=== PATIENT | female | born 1985 | race Caucasian/White ===

== ENCOUNTER → 2016-08-19 | Outpatient (CLI) | payer BC | END | disposition home or self-care (01) | LOC: C.PAPS 11:39 | PROVIDERS: ATTEND Obstetrics & Gynecology | DX: Z01.419 Encounter for gynecological examination (general) (routine) without abnormal findings (principal) ==

== ENCOUNTER 2017-04-05 15:44 | Emergency (ER) | payer BC, OTHER ==
[~2017-04-05] VITALS: Ht 167.6 cm; Wt 52.9 kg
[2017-04-05 15:46] VITALS: TEMP 36.9; Ht 167.6 cm; Wt 52.9 kg
--- NOTE | 2017-04-05 16:04 | EMERGENCY ROOM VISIT NOTE ---
History First contact with patient: 15:48 Chief Complaint: OTHER COMPLAINT Stated Complaint: BLOOD EXPOSURE, SPLASH TO FACE-WC History of Present Illness The patient is a 31 year old female who presents to the Emergency Room for evaluation of a body fluid exposure. 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 She states this was at the outpatient surgery center. She was wearing a facemask and glasses. She does report there was blood on the front of her glasses. She is unsure if any of the blood did splash into her eye. She rinsed her eyes with saline afterward. Source patient is known and has agreed to testing. Patient believes that her tetanus status and hepatitis B titers are up-to-date. She states that the source patient was a low risk patient. Review of Systems A complete 10 point review of systems was reviewed with the patient with pertinent positives and negatives as per history of present illness. All else were negative. Social History Smoking Status: Never Smoker Alcohol Use: none Marital Status: Housing Status: lives with significant other Occupation Status: employed Physical Exam Vital Signs Date Time Temp Pulse Resp B/P (MAP) Pulse Ox O2 Delivery O2 Flow Rate FiO2 04/05/17 15:46 36.9 77 16 136/88 100 Room Air Physical Exam VITALS: Vitals are noted on the nurse's note and reviewed by myself. Vital signs stable. GENERAL: This is a 31-year-old female, in no acute distress, nondiaphoretic, well-developed well-nourished. EYES: No conjunctival injection or periorbital edema. NEURO: Patient was alert and oriented to person place and time. Medical Decision & Procedures Laboratory Results Test 04/05/17 16:02 Medical Decision The patient was evaluated as above. Labs were drawn to evaluate patient's baseline HIV and hepatitis status. Explanation of HIV testing was discussed with the patient and she gave written consent for HIV baseline testing. Benefit /risk of starting postexposure prophylaxis were discussed with the patient and she chose not to start postexposure prophylaxis at this time. The patient will follow-up with her employee health provider for further instructions and treatment. She verbalized understanding of my assessment and treatment plan and was discharged home in good condition. Medication Reconcilliation Current Medication List: was personally reviewed by me Blood Pressure Screening Patient's blood pressure: Normal blood pressure Impression Primary Impression: Patient exposure to body fluids Departure Information Dispostion Home / Self-Care Condition GOOD Referrals Estephanie Bean PA-C (PCP) Patient Instructions My [facility] Remote Additional Instructions Follow-up with your Workmen's Compensation provider for testing results and further instructions.
[2017-04-05 16:16] VITALS: BP 127/76; PULSE 76; O2SAT 98
[2017-04-05 17:27] LABS: HEPATITIS B AB POS
== END 2017-04-05 16:16 | disposition home or self-care (01) ==
LOC: C.EDB 15:44 → C.EDD 16:16
DX: Z77.21 Contact with and (suspected) exposure to potentially hazardous body fluids (principal)

== ENCOUNTER → 2017-08-26 | Outpatient (CLI) | payer BC | END | disposition home or self-care (01) | LOC: C.PAPS 16:46 | PROVIDERS: ATTEND Obstetrics & Gynecology | DX: Z01.419 Encounter for gynecological examination (general) (routine) without abnormal findings (principal) ==

== ENCOUNTER 2023-08-30 14:02 | Inpatient (IN) ==
[2023-08-30] MEDS: LACTATED RINGER'S 1,000 ML IV PRN (14:10)
--- NOTE | 2023-08-30 14:11 | History & Physical Report ---
Date of Service August 30, 2023 Assessment & Plan (1) Normal labor: Plan Patient still in the first stage of labor. Patient's cervical exam indicated she was 6 cm dilated, 100% effaced, with the fetus at a 0 station in the OB clinic. Labs, including CBC w/o Diff and blood bank hold ordered. Patient also was given an epidural. History of Present Illness Chief Complaint: Labor Primary Care Provider: Estephanie Bean PA-C Patient is a , 41w3d, 37 yo F w/ a PMHx of migraines, elderly primigravida, duodenitis who presents today due to being in labor, after being seen in the outpatient OB clinic. The patient has received care and has not had any complications during her current . Patient started experiencing contractions every 2-3 minutes this morning and significant cramping and pain, had a brief period where she was uncertain if there was any movement, and then went in to the OB clinic for a urgent visit, where she had a cervical exam and it was determined that she was 6 cm, 100% effaced, with a 0 station. She has since noticed resumption of movement. Contractions: yes (regular, 2-3 min apart) Fluid or Blood loss: yes (blood loss, bloody show) Movement: active Labs - Blood type, B+ - Antibody screen, negative - Hg, 14.1 - Hct, 41.1 - Wbc, 12.6 - Plt, 192 - Rubella, immune - VDRL/RPR, non-reactive - Gonorrhea, not detected - Chlamydia, not detected - HIV, non-reactive - HbSAg, non-reactive - GBS, negative - Glucose tolerance x 2 Allergies Allergy/AdvReac Type Severity Reaction Status Date / Time No Known Allergies Allergy Verified 08/30/23 13:33 Home Medications Medication Instructions Recorded Confirmed Type breast pump #1 ea 06/17/23 08/30/23 Rx aspirin 81 mg capsule 81 mg PO DAILY 08/30/23 08/30/23 History vits no.124-ferrous fum 1 tab PO DAILY 08/30/23 08/30/23 History 27 mg iron-folic acid 800 mcg tablet ( Vitamin) Past Med/Surg History Medical History Acute duodenitis History of chicken pox History of HPV infection History of IBS Migraine Migraine without aura, not intractable, without status migrainosus Surgical History H/O LEEP History of breast augmentation History of esophagogastroduodenoscopy (EGD) History of tooth extraction Nausea and vomiting after administration of anesthetic agent No significant past surgical history Family History Grandmother Diabetes Grandfather Family hx of colon cancer Mother Osteoporosis Migraine Hypothyroidism Father Osteoporosis Aunt Uterine cancer Breast cancer Grandmother (Paternal) Colorectal cancer Other Hypertension Lung disease Denies family history of Ovarian cancer Prostate cancer Myocardial infarction Social History Smoking Status: Never smoker Second Hand Exposure: No; Do You Dip or Chew Tobacco: No; Hx Alcohol Use: Yes Alcohol type: wine Hx Substance Use: No Preferred Language: Mosotho Communication Ability: Effective Arcgis Developer Required: No Beliefs That Will Affect Care: None marital status: marital status details: CHANELL Ball(42) [phone] Current Living Situation: Spouse Current Living Situation Comment: lives with spouse, dogs current occupational status: employed 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 Feels Safe at Home: Yes Safety Concerns: Feels Safe At This Time Assistive Devices: None Review of Systems Constitutional: no fever and no chills Eyes: no diplopia, not seeing flashes and no worsening vision Ear, Nose, Mouth, Throat: no nasal congestion, no nasal discharge and no sore throat Respiratory: no cough, no chest congestion and no dyspnea Cardiovascular: no chest pain and no palpitations Gastrointestinal: no abdominal pain, no nausea, no vomiting, no constipation and no diarrhea/loose stools Genitourinary: no dysuria Physical Exam Respiratory: normal respiratory effort, lungs clear to auscultation Cardiovascular: RRR, no murmur, no edema Extremities: normal capillary refill; no calf tenderness Gastrointestinal (Abdomen): normal bowel sounds, soft, nontender, no hepatosplenomegaly Psychiatric: A+Ox3, euthymic affect Supervising Physician Co-Signing Physician Notes Patient was sent to L&D from office but this was not directly communicated to me by either the office or the L&D staff. I was therefore unaware of her arrival until I inquired at L&D's desk about the new patient who I noted was in room 422, with resident Jean Claude also in the room and visible from the hallway. By that time Dr. Berry (anesthesia) was already at bedside preparing to administer an epidural. I was informed that the patient was 6cm per Dr. Miles in the office and very uncomfortable. I greeted the patient and said I'd come reassess her after she was comfortable. I was later called by EZEQUIEL Adhikari to notify me of SROM for meconium-stained fluid. I then examined the patient who was 7100/+1 with ROM for mec-stained fluid. FHT have been Cat 1 throughout. She continues to labor spontaneously at this time. - Dr. Cohen
--- NOTE | 2023-08-30 14:27 | Anesthesiology Consultation ---
Date of Service August 30, 2023 Assessment & Plan Chart Review Chart Review: Patient NOT seen in Pre Admission Testing and Acceptable Risk for Labor Epidural Consults Requested none ASA ASA2 Proposed Anesthesia Anesthesia Type: Labor Epidural Site: Femoral Risk / Benefits Reviewed With: PT / POA / Parent / Guardian, Accepts Plan and Informed Consent Obtained History Allergies Allergy/AdvReac Type Severity Reaction Status Date / Time No Known Allergies Allergy Verified 08/30/23 13:33 Medications Home Medications Medication Instructions Recorded Confirmed Last Taken breast pump #1 ea 06/17/23 08/30/23 Unknown aspirin 81 mg capsule 81 mg PO DAILY 08/30/23 08/30/23 08/29/23 vits no.124-ferrous fum 1 tab PO DAILY 08/30/23 08/30/23 08/29/23 27 mg iron-folic acid 800 mcg tablet ( Vitamin) NPO Date Last Intake of Fluids: 08/30/23 Time Last Intake of Fluids: 14:00 Date Last Intake of Solids: 08/30/23 Time Last Intake of Solids: 10:30 Past Medical History Medical History Acute duodenitis History of chicken pox History of HPV infection History of IBS Migraine Migraine without aura, not intractable, without status migrainosus Exercise / Class Metabolic Activity II 4-5 Yardwork/Stairs/Walk up hill Past Family History Family History Grandmother Diabetes Grandfather Family hx of colon cancer Mother Osteoporosis Migraine Hypothyroidism Father Osteoporosis Aunt Uterine cancer Breast cancer Grandmother (Paternal) Colorectal cancer Other Hypertension Lung disease Denies family history of Ovarian cancer Prostate cancer Myocardial infarction Past Surgical History Surgical History H/O LEEP History of breast augmentation History of esophagogastroduodenoscopy (EGD) History of tooth extraction Nausea and vomiting after administration of anesthetic agent No significant past surgical history Past Anesthesia History No Hx of Anesthesia Complications and No Family Hx of Anesthesia Complications History of PONV No Hx of PONV Social History Smoking Status: Never smoker Do You Dip or Chew Tobacco: No Hx Alcohol Use: Yes Alcohol type: wine alcohol intake frequency: a few times a month Hx Substance Use: No substance use type: does not use Review of Systems ROS Unobtainable: All systems reviewed & are unremarkable except as noted in HPI & below Physical Exam ENMT Mouth: no TMJ abnormality Thyromental Distance: > or= 3.5 Finger Breadths Mallampati Class: II Neck normal visual inspection and trachea midline; neck extension not limited Respiratory normal respiratory effort Auscultation: lungs clear to auscultation bilaterally Cardiovascular Rate/Rhythm: regular rate and regular rhythm Heart Sounds: no murmur Musculoskeletal Spine: normal cervical ROM Extremities: full ROM of extremities Neurologic moves all extremities Psychiatric Orientation: alert and oriented x 3
[2023-08-30 14:39] LABS: Hematocrit (blood only) 41.1 % (37.0-47.0); Hemoglobin 14.1 g/dl (12.0-16.0); Mean Corpuscular Hemoglobin 29.3 pg (25.0-34.0); Mean Corpuscular Hgb Conc 34.3 g/dL (32.0-36.0); Mean Corpuscular Volume 85.4 fL (80.0-100.0); Mean Platelet Volume 11.7 fL (9.4-12.4); Platelet Count 192 K/uL (130-400); RDW Coefficient of Variation 11.9 % (11.5-14.5); RDW Standard Deviation 36.8 fL (36.4-46.3); Red Blood Count 4.81 M/uL (4.20-5.40); White Blood Count 12.57 K/ul (4.8-10.8)
[2023-08-30] MEDS: LIDOCAINE 2%/EPINEPHRINE 1:200,000 20 ML PF ONE (14:45)
[2023-08-30] MEDS: BUPIVACAINE 0.25% PF 30 ML VIAL ONE (14:45)
[2023-08-30] MEDS: fentANYL 2 MCG/ML BUPIVacaine 0.125%-NSS 100ML BAG ONE (14:46)
[2023-08-30] MEDS: fentaNYL citrate PF 100 MCG/2 ML VIAL ONE (14:46)
[2023-08-30] MEDS ORDERED: fentANYL 2 MCG/ML BUPIVacaine 0.125%-NSS 100ML BAG EPI PRN (14:58)
[2023-08-30] MEDS ORDERED: ePHEDrine sulfate 50 MG/ML AMP IV PRN (14:58)
[2023-08-30] MEDS ORDERED: NALBUPHINE HCL 5 MG in SYRINGE 0 ML IV PRN (14:58)
[2023-08-30] MEDS ORDERED: NALOXONE HCL 1 MG in SODIUM CHLORIDE 0.9% 1,000 ML IV PRN (14:58)
[2023-08-30] MEDS ORDERED: LIDOCAINE 2% MPF LOCAL 5 ML VIAL EPI PRN (14:58)
[2023-08-30] MEDS ORDERED: SODIUM CHLORIDE 0.9% PF INJ 10 ML VIAL EPI PRN (14:58)
[2023-08-30] MEDS ORDERED: fentaNYL citrate PF 100 MCG/2 ML VIAL EPI PRN (14:58)
[2023-08-30] MEDS ORDERED: BUPIVACAINE 0.25% PF 30 ML VIAL EPI PRN (14:58)
[2023-08-30] MEDS ORDERED: diphenhydrAMINE 50 MG/ML VIAL IV PRN (14:58)
[2023-08-30] MEDS ORDERED: NALOXONE HCL 0.4 MG/1 ML VIAL/CARP IV PRN (14:58)
[2023-08-30] MEDS ORDERED: ROPIVACAINE 0.5% PF 5 MG/ML 20 ML VIAL EPI PRN (14:58)
[2023-08-30] MEDS: OXYTOCIN 30 UNITS/NSS 30 UNITS/500 ML BAG IV PRN ×2 (18:27→19:12)
[2023-08-30] MEDS: miSOPROStoL 200 MCG TAB PR ONE (18:30)
--- NOTE | 2023-08-30 18:51 | Delivery Summary ---
Vaginal Delivery Summary Date of Service August 30, 2023 Vaginal Delivery Summary DIAGNOSES: 1. Obrien intrauterine at 40w4d gestation. 2. Spontaneous onset of labor. 3. Group B Streptococcus Neg. PROCEDURE: Spontaneous vaginal delivery without laceration. SURGEON: Estephanie Cohen MD. POOL TABLE MECHANIC: None. QUANTITATIVE BLOOD LOSS: 546 mL. COMPLICATIONS: None. PLACENTA: Spontaneous and intact with a 3-vessel cord. DISPOSITION: Stable to labor and delivery. DESCRIPTION: The patient pushed well and brought the head to in DOA position. After a prolonged phase, the head did deliver without need for further measures beyond maternal pushing effort. There was one loop of nuchal cord reduced at the perineum. The right shoulder was anterior and the left hand presented compound alongside the right cheek. The shoulders and body delivered promptly, and the infant was placed on the maternal abdomen. The cord was doubly clamped by the MD and then cut by the FOB. Bulb suction and tactile stim were provided, and the infant did make crying efforts. It was moved to the warmer for further attention due to meconium. The placenta delivered spontaneously and was noted to be intact and with a 3VC, grossly normal size/shape, and had meconium staining. The patient and FOB ask to bring the placenta home to plant beneath a tree. Some initially brisk vaginal bleeding prompted administration of 1000mcg rectal cytotec. The cervix, vagina and perineum were examined using specula and ring forceps to walk around the entire cervix, and were found to be without defect requiring repair. The fundus was firm and lochia minimal when I left the room to document. [facility] Vaginal Delivery Charge Vaginal Delivery Codes: 74240 global code for the antepartum, delivery, and post -
[2023-08-30] MEDS ORDERED: bisacodyL 10 MG SUPP PR PRN (18:55)
[2023-08-30] MEDS ORDERED: HYDROCORTISONE ACETATE 25 MG SUPP PR PRN (18:55)
--- NOTE | 2023-08-30 18:57 | Anesthesia Procedure Note ---
Date of Service August 30, 2023 Anesthesia Post Epidural Note Vital Signs Vital Signs: Temp Pulse Resp BP Pulse Ox 36.9 C 108 H 18 108/73 100 08/30/23 16:30 08/30/23 18:42 08/30/23 18:24 08/30/23 18:42 08/30/23 18:21 Pain Intensity Bilateral Abdomen: Pain Intensity: 7 Notes Mental Status: alert / awake / arousable and participated in evaluation Nausea / Vomiting: adequately controlled Pain: adequately controlled Airway Patency, RR, SpO2: stable & adequate BP & HR: stable & adequate Hydration State: stable & adequate Neuraxial Anesthesia: was administered and sensory block is resolving Anesthetic Complications: no major complications apparent Epidural: Removed without complications and With tip intact
[2023-08-30] MEDS: ePHEDrine sulfate 50 MG/ML AMP ONE (20:48)
[2023-08-30] MEDS: SODIUM CHLORIDE 0.9% PF INJ 10 ML VIAL EPI STA (20:49)
[2023-08-30] MEDS: SODIUM CHLORIDE 0.9% PF INJ 10 ML VIAL ONE (20:49)
[2023-08-30] MEDS: LIDOCAINE 2%/EPINEPHRINE 1:200,000 20 ML PF EPI STA (20:49)
[2023-08-30] MEDS: BUPIVACAINE 0.25% PF 30 ML VIAL EPI STA (20:49)
[2023-08-30] MEDS: fentaNYL citrate PF 100 MCG/2 ML VIAL EPI STA (20:49)
[2023-08-30] MEDS: DIPHTHER/TETAN/PERTUS Vaccine (Tdap, Adol/Adult) 0.5mL IM ONE (20:50)
[2023-08-30] MEDS: ACETAMINOPHEN 325 MG TAB PO PRN (21:05)
[2023-08-31] MEDS: IBUPROFEN 600 MG TAB PO PRN (00:12)
[2023-08-31] MEDS: DOCUSATE SODIUM 100 MG CAP PO SCH (01:07)
--- NOTE | 2023-08-31 05:40 | Obstetrical Progress Note ---
Date of Service August 31, 2023 Assessment & Plan (1) (normal spontaneous vaginal delivery): Plan 37 yo , status post on 08/30/23 - Pt doing well clinically. Feels well today. Eating well, voiding well, ambulating well. Pain well controlled with PRN pain meds. - Routine care -- OOB, ambulation, diet progression as tolerated Vital Signs reviewed and mostly WNL. (Tmax at 37.7). Patient had some tachycardia for a few hours post-delivery but since has been w/in normal range. Hemoglobin Reviewed. 14.1 (08/29) 8.8 (today). Blood Type: B+, GBS-, Rubella Immune. Encourage ambulation, monitor and control pain with Motrin PRN, resume regular diet, monitor lochia. Breast feeding encouraged. After discharge will have 6 week follow-up with Dr. Cohen. Pt counselled on discharge instructions, but advised to stay an additional day. Subjective Ambulation: ambulating normally (some increased soreness, swelling in perineum) Voiding: no voiding problems Passing Gas:: Yes (less frequently than normal) Diet Tolerance:: regular diet Lochia:: Moderate Feeding Type:: breast feeding Current Pain Level(1-10): 5 (in the perineal area, soreness and bruising) Constitutional: no fever or no chills Eyes: no diplopia, no seeing flashes or no worsening vision Ear, Nose, Mouth, Throat: no nasal congestion, no nasal discharge or no sore throat Respiratory: no cough, no chest congestion or no dyspnea Cardiovascular: no chest pain or no palpitations Gastrointestinal: no abdominal pain, no nausea, no vomiting, no constipation or no diarrhea/loose stools Genitourinary (female): no dysuria Physical Exam Constitutional WD/WN, vitals as above Respiratory normal respiratory effort, lungs clear to auscultation Cardiovascular RRR, no murmur, no edema Extremities: normal capillary refill; no calf tenderness Gastrointestinal (Abdomen) normal bowel sounds, soft, nontender, no hepatosplenomegaly Psychiatric A+Ox3, euthymic affect Results & Data Vital Signs (Past 12 Hours) Vital Signs Temp Pulse Pulse Resp BP BP Pulse Ox 08/31/23 03:35 37.0 C 72 20 120/78 99 08/30/23 22:15 37.1 C 87 20 137/80 100 08/30/23 20:53 88 125/85 08/30/23 20:42 91 H 116/69 08/30/23 20:41 37.7 C H 18 08/30/23 20:26 90 118/77 08/30/23 20:12 92 H 120/73 08/30/23 20:02 88 122/70 08/30/23 19:42 106 H 131/60 08/30/23 19:27 108 H 112/71 08/30/23 19:12 96 H 146/68 H 08/30/23 18:57 99 H 137/80 08/30/23 18:50 18 08/30/23 18:42 108 H 108/73 08/30/23 18:27 106 H 122/80 08/30/23 18:24 18 08/30/23 18:24 18 08/30/23 18:21 72 100 08/30/23 18:16 118 H 100 08/30/23 18:11 69 100 08/30/23 18:06 78 100 08/30/23 18:01 83 100 08/30/23 18:00 18 08/30/23 18:00 18 08/30/23 17:58 87 157/82 H 08/30/23 17:56 84 100 08/30/23 17:51 117 H 100 08/30/23 17:46 89 100 08/30/23 17:41 100 H 100 O2 Del Method 08/31/23 03:35 Room Air 08/30/23 22:15 Room Air 08/30/23 20:53 08/30/23 20:42 08/30/23 20:41 Room Air 08/30/23 20:26 08/30/23 20:12 08/30/23 20:02 08/30/23 19:42 08/30/23 19:27 08/30/23 19:12 08/30/23 18:57 08/30/23 18:50 08/30/23 18:42 08/30/23 18:27 08/30/23 18:24 08/30/23 18:24 08/30/23 18:21 08/30/23 18:16 08/30/23 18:11 08/30/23 18:06 08/30/23 18:01 08/30/23 18:00 08/30/23 18:00 08/30/23 17:58 08/30/23 17:56 08/30/23 17:51 08/30/23 17:46 08/30/23 17:41
[2023-08-31 06:53] LABS: Hematocrit (blood only) 25.5 % (37.0-47.0); Hemoglobin 8.8 g/dl (12.0-16.0); Mean Corpuscular Hemoglobin 29.3 pg (25.0-34.0); Mean Corpuscular Hgb Conc 34.5 g/dL (32.0-36.0); Mean Platelet Volume 11.9 fL (9.4-12.4); Platelet Count 116 K/uL (130-400); RDW Standard Deviation 36.8 fL (36.4-46.3); White Blood Count 11.23 K/ul (4.8-10.8)
[2023-08-31] MEDS: BENZOCAINE 20% SPRY 85 APPLN/85 GM CAN EXT PRN (08:30)
[2023-08-31] MEDS: oxyCODONE/ACETAMINOPHEN 5mg/325mg TAB PO PRN (08:31)
[2023-08-31] MEDS: PRENATAL VITAMIN 1 TAB PO SCH (08:31)
[2023-08-31] MEDS: bisacodyL 5 MG TABEC PO SCH (21:07)
[2023-09-01 06:17] LABS: Hematocrit (blood only) 24.5 % (37.0-47.0); Hemoglobin 8.2 g/dl (12.0-16.0)
--- NOTE | 2023-09-01 06:17 | Obstetrical Progress Note ---
Date of Service <Redd Silverio MD - Last Filed: 09/01/23 07:39> September 01, 2023 Assessment & Plan <Redd Silverio MD - Last Filed: 09/01/23 07:39> (1) (normal spontaneous vaginal delivery): Plan 37 yo , status post on 08/30/23 - Pt doing well clinically. Feels well today. Eating well, voiding well, ambulating well. Pain well controlled with PRN pain meds. - Routine care -- OOB, ambulation, diet progression as tolerated Vital Signs reviewed and mostly WNL. (Tmax at 37.0 o/n). Patient had some tachycardia for a few hours post-delivery but since has been w/in normal range. Patient without any signs or symptoms concerning for anemia including increased fatigue, weakness, or paleness. Not tachycardic. Hemoglobin Reviewed. 14.1 (08/29) 8.8 (08/30), 8.2(today). Blood Type: B+, GBS-, Rubella Immune. Encourage ambulation, monitor and control pain with Motrin PRN, resume regular diet, monitor lochia. Breast feeding encouraged. After discharge will have 6 week follow-up with Dr. Cohen. Pt counselled on discharge instructions, but advised to stay an additional day. <Mame Botello MD, FACOG - Last Filed: 09/01/23 07:59> (1) (normal spontaneous vaginal delivery): Subjective <Redd Silverio MD - Last Filed: 09/01/23 07:39> Constitutional: no fever or no chills Eyes: no diplopia, no seeing flashes or no worsening vision Ear, Nose, Mouth, Throat: no nasal congestion, no nasal discharge or no sore throat Respiratory: no cough, no chest congestion or no dyspnea Cardiovascular: no chest pain or no palpitations Gastrointestinal: no abdominal pain, no nausea, no vomiting, no constipation or no diarrhea/loose stools Genitourinary (female): no dysuria Physical Exam <Redd Silverio MD - Last Filed: 09/01/23 07:39> Constitutional WD/WN, vitals as above Respiratory normal respiratory effort, lungs clear to auscultation Cardiovascular RRR, no murmur, no edema Extremities: normal capillary refill; no calf tenderness Gastrointestinal (Abdomen) normal bowel sounds, soft, nontender, no hepatosplenomegaly Psychiatric A+Ox3, euthymic affect Results & Data <Redd Silverio MD - Last Filed: 09/01/23 07:39> Vital Signs (Past 12 Hours) Vital Signs Temp Pulse Resp BP 08/31/23 23:07 36.7 C 65 18 95/62 L 08/31/23 21:00 37.0 C 66 18 103/66 Supervising Physician <Mame Botello MD, FACOG - Last Filed: 09/01/23 07:59> Co-Signing Physician Notes Resident Physician Supervision Note: I interviewed and examined the patient. Discussed with Dr. Silverio and agree with findings and plan as documented in the note. Any exceptions or clarifications are listed here: [None] Documented By: Mame Botello MD, FACOG
== END 2023-09-01 20:15 | disposition home or self-care (01) | DRG 807 ==
LOC: OPB 14:02 → 4S1 14:07 → 4E2 21:37